=== PATIENT | female | born 1950 | race Caucasian/White ===

== ENCOUNTER 2016-06-19 08:48 | Day surgery (SDC) | payer MEDICARE, BC ==
[~2016-06-19] VITALS: Ht 157.5 cm; Wt 105.9 kg
[~2016-06-19 08:48] MED LIST: DETROL LA4 MG PO; FLUTICASONE PRO16 GM NASAL; FUROSEMIDE20 MG PO; NIFEDIPINE ER60 MG PO; OMEPRAZOLE20 M1 PO; SYNTHROID25 MCG PO; ULORIC40 MG PO; ZESTRIL20 MG PO; ZETIA10 MG PO
[2016-06-19 10:14] VITALS: BP 143/79; BMI 42.7
[2016-06-19 10:37] LABS: HEMATOCRIT 38.1 % (36.0-48.0); HEMOGLOBIN 12.7 g/dL (12-16); MCH 32.1 pg (26.0-34.0); MCHC 33.3 g/dL (31.0-37.0); MCV 96.2 fL (80.0-100.0); MEAN PLATELET VOLUME 10.6 fL (7.4-10.4); RBC 3.96 10x6/uL (4.00-5.40); RDW 12.7 % (11.5-14.5); WBC 4.5 10x3/uL (4.8-10.8)
[2016-06-19 10:50] LABS: ANION GAP 14.7 mmol/L (8-16); CALCIUM 9.9 mg/dL (8.5-10.1); CREATININE - SERUM 1.3 mg/dL (0.6-1.3); POTASSIUM - SERUM 4.7 mmol/L (3.5-5.1)
--- NOTE | 2016-06-19 13:12 | NUR ---
JOHN RELIEVED KARSTEN FOR LUNCH. [id number]
[2016-06-19] MEDS ORDERED: HYDROCODON-ACE1 EAC7 PO (13:48)
[2016-06-19] MEDS ORDERED: CYCLOBENZAPRINE10 MG PO (13:48)
--- NOTE | 2016-06-19 13:59 | NUR ---
THE PATIENT IS NOW FALLING ASLEEP DURING PAIN ASSESMENTS.
--- NOTE | 2016-06-19 16:42 | NUR ---
[address] LR GIVING REPORT ON BLEEDING AND TINGLEING OF EXTREMITIES AND WEAKNESS OF PT.
--- NOTE | 2016-06-19 19:23 | NUR ---
1920 REPORT TO ERICA MACK, TO 2207 BY WC.
--- NOTE | 2016-06-19 19:30 | NUR ---
PATIENT RECEIVED TO ROOM FROM OUTPATIENT VIA WHEELCAHIR WITH FAMILY AND HOSPITAL STAFF. AAOX4. RR EVEN AND UNLABORED. 0 S/S OF DISTRESS. STATES PAIN IS AN 8/10. IV TO RIGHT WRIST S/L WITH NO REDNESS OR SWELLING. DRESSING TO ABD CDI WITH ABD BINDER IN PLACE. ORIENTED PATIENT TO ROOM AND CALL LIGHT. NO OTHER NEEDS AT THIS TIME.
--- NOTE | 2016-06-19 20:30 | NUR ---
NORCO GIVEN FOR PAIN. WILL REASSESS.
--- NOTE | 2016-06-20 | NUR ---
PATIENT SLEEPING WITH NO DISTRESS NOTED. CALL LIGHT WITHIN REACH.
[2016-06-20 00:42] VITALS: BP 115/67; Ht 157.5 cm; Wt 105.9 kg
--- NOTE | 2016-06-20 03:00 | NUR ---
ASSISTED PATIENT TO BATHROOM AND BACK TO BED. SHE IS MUCH MORE ALERT WITH LESS WEAKNESS. STATES SHE "FEELS SO MUCH BETTER."
[2016-06-20 04:00] VITALS: BP 96/63
--- NOTE | 2016-06-20 07:15 | NUR ---
PT AWAKE AND ALERT. WANTS TO D/C HOME AT THIS TIME. WILL PAGE DR LR.
--- NOTE | 2016-06-20 08:03 | NUR ---
SPOKE WITH DR LR AT THIS TIME AND HE SAID THAT IF PT IS FEELING BETTER THAT SHE MAY GO AHEAD AND DISCHARGE HOME.
--- NOTE | 2016-06-20 08:20 | NUR ---
IV TO RIGHT WRIST D/C WITH CATH TIP INTACT. DISCHARGE INSTRUCTIONS REVIEWED AND PROVIDED TO PT. DENIES QUESTIONS OR CONCERNS. CALL LIGHT IN REACH, WILL CONTINUE WITH PLAN OF CARE.
--- NOTE | 2016-06-20 08:20 | OP ---
PATIENT NAME: MEEK HENAO MEDICAL RECORD: [id number] :50 LOCATION:[id number] ADMISSION DATE: SURGEON: PRAFUL LR MD DATE OF OPERATION: 06/19/2016 SURGEON: Praful Lr MD. PREOPERATIVE DIAGNOSIS: Incarcerated incisional hernia. POSTOPERATIVE DIAGNOSIS: Incarcerated incisional hernia. PROCEDURE PERFORMED: Laparoscopic incarcerated incisional hernia repair with Ventralight ST mesh. ANESTHESIA: General. COMPLICATIONS: None. SPECIMENS: None. Case was clean. ESTIMATED BLOOD LOSS: 20 cc. OPERATIVE COURSE: After consent was obtained, the patient was taken to the operating room and placed in the supine position on the operating table. Next, general anesthesia was given via endotracheal intubation after a timeout was performed that confirmed the correct patient and procedure. The abdomen was then prepped and draped in typical sterile fashion. An Ioban dressing was placed. Local anesthetic was injected in the left upper quadrant at Bear's point. A stab incision was made with an 11-blade scalpel. Using a 5-mm bladeless optical trocar, the abdomen was entered under direct laparoscopic vision. Adequate pneumoperitoneum was achieved. The abdominal cavity was inspected. No evidence of bowel injury. No evidence of bleeding. At this time, all remaining trocars were placed, 12-mm trocar in the left lateral quadrant, 5-mm trocar in the left lower quadrant and 5-mm trocar in the right lateral quadrant. The incisional hernia had an incarcerated greater omentum within the hernia defect. The hernia sac was excised. The greater omentum was reduced through the hernia defect. The preperitoneal fat was dissected away using electrocautery and blunt dissection. The greater omentum was inspected. There was no evidence of bleeding. Once the hernia sac was excised. The hernia defect was closed primarily with 3 interrupted 0 Prolene sutures. The sutures were passed through a skin incision at the umbilicus with a Vicente-Regina suture passer under laparoscopic vision. Once the hernia defect was closed, a 6-inch Ventralight ST mesh was placed in the abdomen. It was positioned against the anterior abdominal wall with the Echo positioning system, it was secured in a double crown fashion using the OptiFix tacking device. Next, the Echo positioning system was removed through the 12-mm trocar. At this time, the abdominal cavity was inspected. There was no evidence of bowel injury. No evidence of bleeding. The entire abdominal cavity was inspected. The operative site was irrigated. The abdominal cavity was suctioned. Again, there is no evidence of bowel injury. No evidence of bleeding. At this time, all remaining instruments were removed. The abdomen was desufflated. Trocars were removed. Skin was closed with 4-0 Monocryl, Mastisol and Steri-Strips. At the end of the case, all needle and instrument counts were correct. No complications occurred. OPERATIVE REPORT [id number] MEEK HENAO The patient was extubated and transferred to the PACU in stable condition. TRANSINT:[id number] Voice Confirmation ID: [id number] DOCUMENT ID: [id number] PRAFUL LR MD at 0820 CC: [id number] DICTATION DATE: 06/19/16 1346 BEAD TRIMMER: 06/19/16 1808 [facility] [address] [place] [address]
[2016-06-20 08:28] VITALS: BP 109/64
== END 2016-06-20 09:00 | disposition home or self-care (01) ==
LOC: D.OPS 08:48 → D.MS 08:48 → D.OPS 11:15 → D.PAN 11:45 → D.OPS 11:45 → D.PAN 12:00 → D.OPS 12:00 → D.MS 19:25 → D.OPS 06-20 09:00
PROVIDERS: Anesthesiology
DX: K43.0 Incisional hernia with obstruction, without gangrene (principal)

== ENCOUNTER → 2017-06-24 12:36 | Outpatient (CLI) | payer MEDICARE, BC ==
[2016-06-20 00:42] VITALS: BMI 42.7
[~2017-06-24 12:36] MED LIST changes: +CYCLOBENZAPRINE10 MG PO; +HYDROCODON-ACE1 EAC7 PO
== END | disposition home or self-care (01) ==
LOC: D.RT 12:36
DX: R06.09 Other forms of dyspnea (principal)

== ENCOUNTER → 2018-05-05 17:02 | Outpatient (CLI) | payer MEDICARE, BC ==
[2016-06-20 00:42] VITALS: BMI 42.7
== END | disposition home or self-care (01) ==
LOC: D.MAMMO 04-10 14:30
DX: Z12.31 Encounter for screening mammogram for malignant neoplasm of breast (principal)

== ENCOUNTER → 2020-07-06 15:00 | Outpatient (CLI) | payer MEDICARE, BC ==
[2016-06-20 00:42] VITALS: BMI 42.7
== END ==
LOC: D.MAMMO 15:00
PROVIDERS: ATTEND Family Medicine
DX: Z12.31 Encounter for screening mammogram for malignant neoplasm of breast (principal); M54.16 Radiculopathy, lumbar region